=== PATIENT | female | born 1955 | race Two or more races ===

== ENCOUNTER 2019-10-18 07:57 | Inpatient (IN) | payer MEDICARE, MEDICAID ==
[~2019-10-18] VITALS: Ht 152.4 cm; Wt 64.9 kg
[2019-10-18 08:53] LABS: Basophils # (auto) 0 10 ^3/uL (0-0.2); Basophils % (auto) 0.7 % (0.0-2.0); Eosinophils # (auto) 0 10 ^3/uL (0-0.8); Eosinophils % (auto) 0.9 % (0.0-7.0); Hematocrit 36.3 % (36.0-46.0); Lymphocytes # (auto) 1.4 10 ^3/uL (0.4-5.4); Lymphocytes % (auto) 25.1 % (10.0-50.0); Mean Corpuscular Hemoglobin 29.4 pg (28.0-32.0); Mean Corpuscular Hgb Conc. 32.9 g/dL (32.0-36.0); Mean Corpuscular Volume 89.4 fL (80.0-100.0); Monocytes # (auto) 0.5 10 ^3/uL (0-1.3); Monocytes % (auto) 8.1 % (0.0-12.0); Neutrophils # (auto) 3.7 10 ^3/uL (1.6-8.6); Neutrophils % (auto) 65.2 % (37.0-80.0); Platelet Count (auto) 234 10^3/uL (140-450); Red Blood Cells 4.06 10^6/uL (4.0-5.20); Red Cell Distribution Width 16.5 % (11.8-14.3); White Blood Cell 5.6 10^3/uL (4.4-10.8)
[2019-10-18] MEDS ORDERED: IPRATROPIUM BROM 0.5 MG/2.5ML INH SOL NEB ONE (09:00)
[2019-10-18] MEDS ORDERED: ALBUTEROL SULF 2.5 MG/0.5ML(0.5%) NEB SOLN NEB ONE (09:00)
[2019-10-18 09:11] LABS: Albumin 3.6 g/dL (3.4-5.0); Amylase 37 U/L (25-115); Anion Gap 13 (5-15); BUN/Creatinine Ratio 23.4; Blood Urea Nitrogen 30 mg/dL (7-18); Calcium 8.7 mg/dL (8.5-10.1); Carbon Dioxide 24 mmol/L (21-32); Chloride 106 mmol/L (98-107); GFR African American 54 mL/min; GFR Non-African American 44 mL/min; Glucose 108 mg/dL (74-106); Lipase 76 U/L (73-393); Potassium 3.4 mmol/L (3.5-5.1); Sodium 143 mmol/L (136-145)
[2019-10-18 09:16] LABS: Alanine Aminotransferase 281 U/L (13-56); Alkaline Phosphatase 288 U/L (45-117); Aspartate Aminotransferase 97 U/L (15-37); Bilirubin, Total 0.4 mg/dL (0.2-1.0); Total Protein 7.2 g/dL (6.4-8.2)
[2019-10-18 10:16] LABS: Urine Bacteria NONE SEEN /hpf (None Seen); Urine Blood Negative /uL (Negative); Urine Hyaline Cast FEW /lpf (0 - 2); Urine Specific Gravity 1.019 (1.001-1.035); Urine WBC 7 /hpf (0 - 5)
[2019-10-18] MEDS ORDERED: SODIUM CHLORIDE 0.9% 1,000 ML IV ONE ×3 (10:45→11:56)
[2019-10-18] MEDS ORDERED: MORPHINE SULFATE 4 MG/ML SYR/VIAL IV ONE (10:45)
[2019-10-18] MEDS ORDERED: levoFLOXacin 500MG 100 ML IV ONE (10:45)
[2019-10-18] MEDS ORDERED: POTASSIUM EFFERVESENT TAB 25 MEQ GT ONE (11:00)
[2019-10-18] MEDS ORDERED: metroNIDAZOLE 500MG/100ML 100 ML IV ONE (12:00)
[2019-10-18] MEDS: SODIUM CHLORIDE 0.9% 1,000 ML IV SCH ×2 (12:35→23:04)
[2019-10-18] MEDS ORDERED: FAMOTIDINE (10MG/ML) 2ML VL IV SCH (12:45)
[2019-10-18] MEDS ORDERED: cefTRIAXone 1GM/50ML D5W 50 ML IV ONE (12:45)
[2019-10-18] MEDS ORDERED: PROMETHAZINE HCL 25 MG/ML 1ML IV PRN (12:45)
[2019-10-18] MEDS ORDERED: ONDANSETRON HCL 4 MG/2 ML VIAL IV ONE (14:00)
[2019-10-18] MEDS ORDERED: GASTROGRAFIN 120 ML SOL ONE (14:00)
[2019-10-18] MEDS: metroNIDAZOLE 500MG/100ML 100 ML IV SCH ×2 (14:00→21:57)
[2019-10-18] MEDS: FAMOTIDINE (10MG/ML) 2ML VL IV SCH (17:16)
[2019-10-18] MEDS: MORPHINE SULF INJ 2 MG/ML SYRINGE 1ML IV PRN ×2 (17:30→22:23)
[2019-10-18 17:41] VITALS: BP 139/70
--- NOTE | 2019-10-18 18:20 | NUR ---
SPOKE WITH DR. RIVAS. WENT OVER THE PATIENT WITH HIM AND GAVE HIM LAB VALUES AND IMAGING RESULTS. OBTAINED ORDERS FOR ADVANCE DIET TOLERATED.
[2019-10-18 18:26] VITALS: BP 139/70
--- NOTE | 2019-10-18 20:00 | NUR ---
Opening Shift Note Assumed care of patient, awake and alert. No S/S of distress/SOB; no complaints of abdominal pain. Instructed on POC and to call for assist PRN, will continue to monitor for changes Q1hr and PRN.
[2019-10-18 21:00] VITALS: BP 98/68
--- NOTE | 2019-10-18 22:25 | NUR ---
Patient complains of abdominal pain; denies nausea and vomiting. Medicated with Morphine 1 Mg IVP.
[2019-10-18] MEDS ORDERED: GABA300C10 PO (23:21)
[2019-10-18] MEDS ORDERED: MIRT30TA PO (23:22)
[2019-10-18] MEDS ORDERED: QUET400T PO (23:22)
[2019-10-18] MEDS ORDERED: LAMO100T44 PO (23:23)
[2019-10-19] MEDS: MORPHINE SULF INJ 2 MG/ML SYRINGE 1ML IV PRN ×5 (02:39→22:29)
--- NOTE | 2019-10-19 02:40 | NUR ---
Patient complains of abdominal pain 8/10 on a 1-10 pain scale. Medicated with Morphine 1 mg IVP.
[2019-10-19 04:50] VITALS: BP 130/73
[2019-10-19] MEDS: metroNIDAZOLE 500MG/100ML 100 ML IV SCH ×3 (05:55→21:02)
[2019-10-19 06:57] LABS: Albumin 3.1 g/dL (3.4-5.0); Calcium 8.1 mg/dL (8.5-10.1); Potassium 3.6 mmol/L (3.5-5.1)
[2019-10-19 07:01] LABS: BUN/Creatinine Ratio 27.9; Bilirubin, Total 0.7 mg/dL (0.2-1.0); Total Protein 6.5 g/dL (6.4-8.2)
--- NOTE | 2019-10-19 07:30 | NUR ---
Opening Shift Note Assumed care of patient, awake and alert. No S/S of distress/SOB. Pain reported. Pain management options discussed with patient. Instructed on POC and to call for assist PRN, will continue to monitor for changes Q1hr and PRN.
[2019-10-19 08:00] VITALS: BP 136/73
[2019-10-19 09:00] VITALS: BP 136/73
[2019-10-19] MEDS: cefTRIAXone 1GM/50ML D5W 50 ML IV SCH (09:56)
[2019-10-19] MEDS: FAMOTIDINE (10MG/ML) 2ML VL IV SCH (09:56)
[2019-10-19 13:00] VITALS: BP 145/76
[2019-10-19] MEDS: FAMOTIDINE 20 MG TAB PO SCH ×2 (14:30→21:03)
[2019-10-19 17:00] VITALS: BP 132/86
[2019-10-19] MEDS: SODIUM CHLORIDE 0.9% 1,000 ML IV SCH ×2 (17:31→20:36)
--- NOTE | 2019-10-19 19:45 | NUR ---
ASSUMED CARE, PT. AWAKE, NO C/O PAIN, NOT IN DISTRESS.
[2019-10-19 21:54] VITALS: BP 139/72
[2019-10-20] MEDS: MORPHINE SULF INJ 2 MG/ML SYRINGE 1ML IV PRN ×6 (03:28→21:15)
[2019-10-20] MEDS: metroNIDAZOLE 500MG/100ML 100 ML IV SCH ×3 (05:06→21:15)
[2019-10-20 06:00] VITALS: BP 134/71
[2019-10-20 06:03] LABS: Basophils # (auto) 0.1 10 ^3/uL (0-0.2); Basophils % (auto) 0.7 % (0.0-2.0); Eosinophils # (auto) 0.1 10 ^3/uL (0-0.8); Eosinophils % (auto) 1.1 % (0.0-7.0); Hematocrit 36.4 % (36.0-46.0); Hemoglobin 12.1 g/dL (12.2-16.2); Lymphocytes # (auto) 1.8 10 ^3/uL (0.4-5.4); Lymphocytes % (auto) 23.8 % (10.0-50.0); Mean Corpuscular Hemoglobin 29.7 pg (28.0-32.0); Mean Corpuscular Hgb Conc. 33.2 g/dL (32.0-36.0); Mean Corpuscular Volume 89.5 fL (80.0-100.0); Monocytes # (auto) 0.6 10 ^3/uL (0-1.3); Monocytes % (auto) 7.3 % (0.0-12.0); Neutrophils # (auto) 5.2 10 ^3/uL (1.6-8.6); Neutrophils % (auto) 67.1 % (37.0-80.0); Nucleated Red Blood Cells % 0.1 %; Platelet Count (auto) 248 10^3/uL (140-450); Red Blood Cells 4.07 10^6/uL (4.0-5.20); Red Cell Distribution Width 16.6 % (11.8-14.3); White Blood Cell 7.8 10^3/uL (4.4-10.8)
[2019-10-20 06:19] LABS: BUN/Creatinine Ratio 10.3; Calcium 8.3 mg/dL (8.5-10.1); Potassium 3.3 mmol/L (3.5-5.1)
[2019-10-20 09:00] VITALS: BP 148/80
[2019-10-20] MEDS: FAMOTIDINE 20 MG TAB PO SCH ×2 (09:06→21:15)
[2019-10-20] MEDS: cefTRIAXone 1GM/50ML D5W 50 ML IV SCH (09:06)
--- NOTE | 2019-10-20 09:52 | NUR ---
ROUNDING MD Cristino HIRSCH AT BEDSIDE. WILL CONTINUE WITH CURRENT POC. ALL QUESTIONS AND CONCERNS ADDRESSED AT THIS TIME.
[2019-10-20] MEDS ORDERED: POTASSIUM CHL 20 Meq TABLET PO ONE (10:45)
--- NOTE | 2019-10-20 12:05 | NUR ---
IV insertion IV access obtained, via clean sterile technique by inserting 22 gauge catheter at RIGHT UPPER ARM after 1 attempt(s). IV secured properly. No trauma to site. Patient tolerated well. IV removal IV DC'd with clean sterile technique, catheter fully intact. Pressure dressing applied to site. Patient tolerated well.
[2019-10-20] MEDS: SODIUM CHLORIDE 0.9% 1,000 ML IV SCH (12:36)
[2019-10-20 13:00] VITALS: BP 150/72
[2019-10-20 17:00] VITALS: BP 142/81
--- NOTE | 2019-10-20 19:40 | NUR ---
Opening Shift Note Assumed care of patient, awake and alert. No S/S of distress/SOB or pain. Instructed on POC and to call for assist PRN, will continue to monitor for changes Q1hr and PRN.
--- NOTE | 2019-10-20 21:15 | NUR ---
Pain Patient complained of pain 8/10 in the abdomen area. Administered pain medication PRN.
--- NOTE | 2019-10-20 21:45 | NUR ---
RE Pain Patient is currently sleeping. No signs of pain or distress.
[2019-10-20 22:00] VITALS: BP_SYST 122; BP_SYST 141; BP_DIAS 70; BP_DIAS 72
[2019-10-21] VITALS (7 sets, daily range): BP systolic 105–151; BP diastolic 60–84
[2019-10-21] MEDS: SODIUM CHLORIDE 0.9% 1,000 ML IV SCH ×3 (00:35→20:35)
[2019-10-21] MEDS: MORPHINE SULF INJ 2 MG/ML SYRINGE 1ML IV PRN ×6 (01:34→22:41)
--- NOTE | 2019-10-21 01:34 | NUR ---
Pain Patient complained of pain 8/10 in the abdomen area. Administered pain medication PRN.
--- NOTE | 2019-10-21 02:04 | NUR ---
RE Pain Patient is sleeping.
[2019-10-21] MEDS: metroNIDAZOLE 500MG/100ML 100 ML IV SCH ×3 (05:35→22:32)
--- NOTE | 2019-10-21 05:35 | NUR ---
Pain Patient complained of pain 03/12. Pain medication administered.
--- NOTE | 2019-10-21 06:05 | NUR ---
RE Pain Patient is sleeping
--- NOTE | 2019-10-21 07:32 | NUR ---
Opening Shift Note Assumed care of patient. Pt is awake, alert, and oriented X 4. No S/S of respiratory distress/SOB. Respirations are regular and non-labored. Patient reports tender abdomen. Bed in lower position, brakes are locked, call light is within reach. IV is patent. POC discussed and pt instructed to call for assistance PRN. Will continue to monitor for changes Q1hr and PRN.
[2019-10-21] MEDS: cefTRIAXone 1GM/50ML D5W 50 ML IV SCH (09:39)
[2019-10-21] MEDS: FAMOTIDINE 20 MG TAB PO SCH ×2 (09:39→22:32)
--- NOTE | 2019-10-21 09:39 | NUR ---
Patient reported pain on generalized abdomen 03/12, pt requesting pain medication, pt will be medicated as order.
[2019-10-21] MEDS ORDERED: BUSP30TA11 PO (10:45)
--- NOTE | 2019-10-21 10:50 | NUR ---
Dr. Dey at bed side to see pt, doctor discussed the plan of care with pt.
[2019-10-21 11:01] LABS: Hepatitis B Surface Antibody Negative
[2019-10-21 11:34] LABS: Hepatitis A Total Antibody Positive
[2019-10-21 13:45] LABS: Hepatitis B Core Total AB Negative
[2019-10-21 13:46] LABS: Hepatitis C Antibody Negative (Negative)
--- NOTE | 2019-10-21 14:24 | NUR ---
Pain medication Pt reported pain on generalized abdomen 03/12, pt requested pain medication, will medicate pt as order.
--- NOTE | 2019-10-21 17:54 | NUR ---
Paged Dr. Christofer Jarvis as per Dr. Dey's request to ask if pt can be d/c home and follow up as an out pt for the ERCP and ultrasound, left a message, awaiting for call back.
--- NOTE | 2019-10-21 18:41 | NUR ---
Patient reported pain on generalized abdomen /, pt requested pain medication, will medicate pt as order.
[2019-10-21] MEDS ORDERED: MIRTAZAPINE 30 MG TAB PO SCH (22:00)
[2019-10-21] MEDS ORDERED: QUEtiapine FUMARATE 100 MG TAB PO SCH (22:00)
[2019-10-21] MEDS: busPIRone HCL 10 MG TAB PO SCH (22:32)
--- NOTE | 2019-10-21 22:40 | NUR ---
IV insertion IV access obtained, via clean sterile technique by inserting 22 gauge catheter at NAVID after 2 attempts. IV secured properly. No trauma to site. Patient tolerated well. NIK IV removal IV DC'd with clean sterile technique, catheter fully intact. Pressure dressing applied to site. Patient tolerated well.
--- NOTE | 2019-10-21 22:41 | NUR ---
Pain Patient complained of pain 9/10 in the abdomen area. Administered Pain medication PRN.
--- NOTE | 2019-10-21 23:11 | NUR ---
RE Pain Patient is sleeping, no signs of distress or pain.
[2019-10-22] MEDS: SODIUM CHLORIDE 0.9% 1,000 ML IV SCH (04:14)
[2019-10-22] MEDS: MORPHINE SULF INJ 2 MG/ML SYRINGE 1ML IV PRN ×3 (04:15→13:42)
--- NOTE | 2019-10-22 04:15 | NUR ---
Pain Patient complained of pain 8/10 in her stomach area. Administered pain medication PRN.
--- NOTE | 2019-10-22 04:45 | NUR ---
RE Pain Patient sleeping
[2019-10-22 05:00] VITALS: BP 124/72
[2019-10-22] MEDS: metroNIDAZOLE 500MG/100ML 100 ML IV SCH ×2 (05:52→13:51)
--- NOTE | 2019-10-22 07:20 | NUR ---
Closing Note Endorsed care to dayshift nurse.
[2019-10-22 08:26] LABS: Hepatitis B Surface Antigen Negative (Negative)
[2019-10-22 09:00] VITALS: BP 121/69
[2019-10-22] MEDS: cefTRIAXone 1GM/50ML D5W 50 ML IV SCH (09:42)
[2019-10-22] MEDS: busPIRone HCL 10 MG TAB PO SCH (09:46)
[2019-10-22] MEDS: FAMOTIDINE 20 MG TAB PO SCH (09:46)
--- NOTE | 2019-10-22 11:43 | NUR ---
DR HIRSCH SAW PATIENT, NEW ORDERS FOR LFT'S. MD REQUESTS TO CALL HIM WHEN RESULTS ARE READY THEN PATIENT MAY POSSIBLY DC.
[2019-10-22 12:49] LABS: BUN/Creatinine Ratio 12.7; Calcium 8.3 mg/dL (8.5-10.1)
[2019-10-22 12:57] LABS: Potassium 3.3 mmol/L (3.5-5.1)
[2019-10-22 13:00] VITALS: BP 127/76
[2019-10-22 14:06] LABS: Albumin 3.5 g/dL (3.4-5.0); Calcium 8.2 mg/dL (8.5-10.1); Potassium 3.7 mmol/L (3.5-5.1)
[2019-10-22 14:10] LABS: BUN/Creatinine Ratio 10.7; Bilirubin, Total 0.4 mg/dL (0.2-1.0); Total Protein 6.6 g/dL (6.4-8.2)
--- NOTE | 2019-10-22 14:37 | NUR ---
CALLED DR HIRSCH AND NOTIFIED HIM OF NEW LAB RESULTS, AWARE, NEW ORDERS FOR DISCHARGE.
[2019-10-22 14:38] VITALS: BP 120/78
--- NOTE | 2019-10-22 15:55 | NUR ---
Discharge instructions given as ordered. Encourage to follow up with PMD as instructed. All questions and concerns addressed. Patient verbalized understanding. Medication reconciliation form completed and copy given to patient. IV removed with catheter intact, pressure dressing applied. Patient taken to vehicle via wheelchair with all personal belongings, accompanied by staff. No distress noted at time of departure.
--- NOTE | 2019-10-22 16:05 | NUR ---
Nutrition Assessment Notes Please refer to link for full assessment notes. Est Energy needs: 2491-8842 kcals (23-25 kcal/kgBW) Est Protein needs: 65-71 gms/day (1.0-1.1 gm/kgBW) Will continue to monitor and reassess prn. Addendum: 10/22/19 at [address] Amended: Links added.
== END 2019-10-22 15:58 | disposition home or self-care (01) | DRG 389 ==
LOC: ER 07:57 → OVERFLOW 07:58 → WEST WING 15:33
PROVIDERS: ADMIT Internal Medicine; ATTEND Family Medicine
DX: K56.699 Other intestinal obstruction unspecified as to partial versus complete obstruction (principal); N39.0 Urinary tract infection, site not specified; K52.9 Noninfective gastroenteritis and colitis, unspecified; I10 Essential (primary) hypertension; N20.0 Calculus of kidney; J45.909 Unspecified asthma, uncomplicated; Z83.3 Family history of diabetes mellitus; Z90.49 Acquired absence of other specified parts of digestive tract; Z87.442 Personal history of urinary calculi
CPT/HCPCS: 36415; 71045; 74176; 74181; 74250; 76705; 80048; 80053; 81001; 82150; 82378; 83690; 84484; 85025; 86301; 86704; 86706; 86708; 86803; 87340; 93005; 94640; 99291; G0378; J0696; J1956; J2405; J3490